=== PATIENT | female | born 1925 | race Caucasian/White ===

== ENCOUNTER 2017-02-17 11:52 | Inpatient (IN) ==
[2017-02-17] MEDS ORDERED: TYLENOL PO PRN ×2 (14:09→14:57)
[2017-02-17] MEDS ORDERED: ZOFRAN ODT PO PRN (14:57)
[2017-02-17] MEDS ORDERED: MIRALAX PO PRN (14:57)
[2017-02-17] MEDS ORDERED: TEARISOL OPH SOLUTION BOTH EYES PRN (14:57)
[2017-02-17] MEDS ORDERED: TUMS PO PRN (14:57)
[2017-02-17] MEDS ORDERED: DULCOLAX PR PRN (14:57)
--- NOTE | 2017-02-17 15:09 | Diag Imaging Result Document ---
PROCEDURE NAME: CHEST-2 VIEWS - 02/17/2017 TWO VIEWS OF THE CHEST: FINDINGS: There is fibrosis with volume loss and elevation of the wilbert bilaterally and marked apical pleural thickening. There may be cystic bronchiectasis in both upper lobe, consistent with chronic granulomatous disease. The appearance of the lungs has not changed significantly since 12/17/2016. There has been significant improvement since 02/12/2014. IMPRESSION: Chronic granulomatous changes with fibrosis and bronchiectasis in the upper lung zones.
[2017-02-17 15:15] LABS: BASO% 0.2 % (0.0-0.8); HEMATOCRIT 39.7 % (37.0-47.0); HEMOGLOBIN 12.8 g/dL (12.0-16.0); IMM GRAN# 0.15 X1000 (0.0-0.04); IMM GRAN% 0.5 % (0.0-0.5); LYMPH# 0.84 X1000 (1.2-3.4); LYMPH% 2.8 % (20.5-51.1); MANUAL DIFF NEEDED? YES; MCH 30.2 PG (27-31); MCHC 32.2 g/dL (33-37); MCV 93.6 FL (81-99); MONO# 3.11 X1000 (0.11-0.59); MONO% 10.3 % (1.7-9.3); MPV 9.7 FL (7.4-10.4); NEUT% 86.2 % (42.2-75.2); PLT 265 X1000 (130-400); RBC 4.24 XMIL (4.2-5.4)
[2017-02-17 15:21] LABS: ALBUMIN 3.8 g/dL (3.5-5.0); CALCIUM 9.6 mg/dL (8.8-10.2); POTASSIUM 3.4 mmol/L (3.5-5.1); TOTAL BILIRUBIN 0.9 mg/dL (0.20-1.00); TOTAL PROTEIN 7.3 g/dL (6.3-8.3)
[2017-02-17] MEDS: CARAFATE PO SCH ×2 (16:37→22:19)
[2017-02-17] MEDS: ALBUTEROL NEB INH SCH (16:41)
--- NOTE | 2017-02-17 16:45 | HISTORY AND PHYSICAL ---
PRIMARY CARE PHYSICIAN: Fransisca Simpson M.D. CHIEF COMPLAINT: Shortness of breath, subjective fever, cough, and had 2 falls last night. HISTORY OF PRESENTING ILLNESS: This is an 89-year-old, female who presents as a direct admit from her primary care physician's office after having a fall x2 last night according to her family member. The patient has had a history of bronchiectasis and now complains of subjective fever, chills, body aches, shortness of breath, productive cough of yellow sputum. Due to her lung history it was felt that she most likely had an underlying pneumonia or could be a flare-up of her bronchiectasis so she is being admitted as a direct admit from her primary care physician's office. PAST MEDICAL HISTORY: Breast cancer, pulmonary fibrosis, CVA x2, hypertension, hypothyroidism, hyperlipidemia, seizures, bronchiectasis. PAST SURGICAL HISTORY: Mastectomy, bilateral cataract surgery, cholecystectomy and bilateral hip replacement. FAMILY HISTORY: Noncontributory. SOCIAL HISTORY: Denies any tobacco, alcohol, or illicit drug use. ALLERGIES: Iodinated contrast media oral and morphine. HOME MEDICATIONS: A current list is being obtained and we will restart those as appropriate. LABORATORY DATA: We obtained a CBC, CMP, 2-view chest x-ray, blood cultures x2 all of which are pending at this time. REVIEW OF SYSTEMS: She was positive for subjective fever, chills, body aches, productive cough of yellow sputum, shortness of breath and fall x2 last night. She denied any chest pain, abdominal pain, constipation, diarrhea, burning or hurting with urination. PHYSICAL EXAMINATION: VITAL SIGNS: Temperature of 97.2 degrees, pulse 83, respirations 16, blood pressure 112/56, saturating 92% on room air. GENERAL: This is an 89-year-old, female who is lying in bed and answers questions appropriately. HEENT: Normocephalic and atraumatic. Pupils are equal, round, reactive to light. Extraocular movements are intact. Oropharynx and nares are clear. NECK: Supple. LUNGS: Scattered wheezes throughout entire posterior lung field, equal lung expansion and chest wall movement noted. HEART: Regular rate and rhythm. No murmurs, rubs, or gallops. ABDOMEN: Soft, nontender, nondistended. Bowel sounds are present x4 quadrants. EXTREMITIES: There is no clubbing, cyanosis, or edema. NEUROLOGICAL: Cranial nerves 2-12 are grossly intact. ASSESSMENT: 1. Fall. 2. Pneumonia versus bronchiectasis. 3. Hypothyroidism. 4. Hypertension, history of. PLAN: 1. She has been admitted to the medical unit at [facility], placed on telemetry, O2 per protocol, incentive spirometry, vital signs q.4 hours, healthy heart diet. 2. We will get a physical therapy consultation. 3. Blood cultures x2, CBC with CMP and a 2 view chest x-ray. After those are obtained we will start her on Levaquin 750 mg IV q.24 hours. 4. We will obtain a current list of her home medications and restart those as appropriate. Dictated by MICHELINE Bhatia for Chuck Lima MD pt examined, agree with above, has a high wbc, may need chest CT, AP[facility]OT MTDD
[2017-02-17] MEDS ORDERED: ATROVENT 0.06% NASAL SPRAY NAS SCH (17:00)
[2017-02-17 17:03] LABS: BANDS 38 % (0-1); LYMPHS 8 % (21-51); MONO 4 % (1-9)
[2017-02-17] MEDS ORDERED: DUONEB (A & A) INH PRN (17:03)
[2017-02-17] MEDS: PATIENT'S OWN MED PO SCH ×2 (17:22→22:21)
[2017-02-17] MEDS: LOVENOX SUBQ SCH (17:23)
[2017-02-17] MEDS: LEVAQUIN 750 MG/D5W 150 ML IV SCH (17:23)
[2017-02-17] MEDS: KEPPRA PO SCH (22:18)
[2017-02-17] MEDS: COLACE PO SCH (22:18)
[2017-02-17] MEDS: PEPCID PO SCH (22:19)
[2017-02-17] MEDS: ANUSOL-HC SUPP PR SCH (22:19)
[2017-02-17] MEDS: LOPRESSOR PO SCH (22:19)
[2017-02-17] MEDS: CITRACAL + D PO SCH (22:19)
[2017-02-17] MEDS: MUCINEX PO SCH (22:19)
[2017-02-17] MEDS: CRESTOR PO SCH (22:19)
[2017-02-17] MEDS: XALATAN 0.005% OPH SOLN BOTH EYES SCH (22:20)
[2017-02-17] MEDS: TESSALON PO SCH (22:20)
[2017-02-17] MEDS: SYSTANE EYE DROPS BOTH EYES SCH (22:21)
[2017-02-18] MEDS: PROTONIX PO SCH (06:17)
[2017-02-18] MEDS: CARAFATE PO SCH ×6 (06:17→21:08)
[2017-02-18] MEDS: SYNTHROID PO SCH ×2 (06:17)
[2017-02-18 06:24] LABS: BASO% 0.2 % (0.0-0.8); HEMATOCRIT 35.1 % (37.0-47.0); HEMOGLOBIN 11.5 g/dL (12.0-16.0); IMM GRAN# 0.09 X1000 (0.0-0.04); IMM GRAN% 0.4 % (0.0-0.5); LYMPH# 1.37 X1000 (1.2-3.4); LYMPH% 5.9 % (20.5-51.1); MANUAL DIFF NEEDED? YES; MCH 30.5 PG (27-31); MCHC 32.8 g/dL (33-37); MCV 93.1 FL (81-99); MONO# 2.77 X1000 (0.11-0.59); MONO% 11.8 % (1.7-9.3); MPV 10.2 FL (7.4-10.4); NEUT% 81.7 % (42.2-75.2); PLT 238 X1000 (130-400); RBC 3.77 XMIL (4.2-5.4)
[2017-02-18 06:39] LABS: AGAP 11; ALBUMIN 3.2 g/dL (3.5-5.0); ALKALINE PHOSPHATASE 144 U/L (32-104); BUN 19 mg/dL (8-22); CALCIUM 9.3 mg/dL (8.8-10.2); CHLORIDE 93 mmol/L (98-107); COSMO 265; DIGOXIN 0.8 ng/mL (0.9-2.0); GOT 20 U/L (10-30); GPT 19 U/L (10-36); POTASSIUM 3.5 mmol/L (3.5-5.1); SODIUM 131 mmol/L (136-145); TCO2 28 mmol/L (25-35); TOTAL PROTEIN 6.6 g/dL (6.3-8.3)
[2017-02-18 06:59] LABS: BANDS 2 % (0-1); BASO 1 % (0-1); LYMPHS 7 % (21-51); MONO 5 % (1-9)
[2017-02-18] MEDS: ALBUTEROL NEB INH SCH (07:48)
[2017-02-18] MEDS: KEPPRA PO SCH ×3 (08:17→21:08)
[2017-02-18] MEDS: CITRACAL + D PO SCH ×3 (08:18→21:08)
[2017-02-18] MEDS: ANUSOL-HC SUPP PR SCH ×2 (08:30→21:06)
[2017-02-18] MEDS: ASPIRIN PO SCH (08:31)
[2017-02-18] MEDS: LOPRESSOR PO SCH ×3 (08:31→21:07)
[2017-02-18] MEDS: MUCINEX PO SCH ×3 (08:31→21:07)
[2017-02-18] MEDS: PRINIVIL PO SCH (08:32)
[2017-02-18] MEDS: PEPCID PO SCH ×3 (08:32→21:07)
[2017-02-18] MEDS: ASTELIN NASAL SPRAY NAS SCH (08:32)
[2017-02-18] MEDS: SYSTANE EYE DROPS BOTH EYES SCH ×3 (09:00→21:07)
[2017-02-18] MEDS ORDERED: LANOXIN PO SCH (09:00)
[2017-02-18] MEDS: CLARITIN PO SCH (09:00)
[2017-02-18] MEDS: PATIENT'S OWN MED PO SCH ×5 (09:00→19:59)
[2017-02-18] MEDS: CARDIZEM CD PO SCH (09:00)
[2017-02-18] MEDS: COLACE PO SCH ×3 (09:00→21:08)
[2017-02-18] MEDS ORDERED: XOPENEX NEB INH PRN (12:25)
--- NOTE | 2017-02-18 14:12 | PROGRESS NOTE ---
DATE: 02/18/2017 SUBJECTIVE: Patient has no focal complaints. She does not feel as good as she was hoping she would feel like. OBJECTIVE: Blood pressure 117/48, heart rate 96, respiratory rate 18, temperature 98.2 degrees, 100% on 3 L.Cardiovascular: Regular rate and rhythm. Pulmonary: Bilateral breath sounds. Clear to auscultation. GI: Soft, nontender, nondistended. Bowel sounds are positive. Extremities: No clubbing or cyanosis. Lymphatics: No peripheral edema. She still has fine crackles in the upper airways. PROBLEM LIST: 1. Pulmonary fibrosis with exacerbation. Continue breathing treatments. I am going to add some low-dose steroids and follow clinically. 2. Bronchiectasis likely recurrent exacerbation. She is on Levaquin. She has a very high a white count which has improved with treatment. I am going to go and progress to CT just because x-ray is not that revealing. We will continue breathing treatments and follow clinically. Sputum culture is pending. 3. Hypertension. Continue her regular medications. DISPOSITION: Pending her rest of her workup. Will continue to monitor very closely.
[2017-02-18] MEDS ORDERED: XOPENEX NEB INH SCH (15:30)
[2017-02-18] MEDS: XOPENEX NEB INH SCH ×3 (16:15→22:59)
[2017-02-18] MEDS: SOLU-MEDROL IV SCH (16:42)
[2017-02-18] MEDS: LEVAQUIN 750 MG/D5W 150 ML IV SCH (16:43)
[2017-02-18] MEDS: LOVENOX SUBQ SCH (16:43)
[2017-02-18 17:00] LABS: URINE SOURCE VOIDED
[2017-02-18 17:13] LABS: BILIRUBIN URINE NEGATIVE (NEGATIVE); BLOOD URINE NEGATIVE (NEGATIVE); CLARITY CLEAR (CLEAR); COLOR YELLOW; GLUCOSE URINE NEGATIVE (NEGATIVE); LEUKOCYTES URINE TRACE (NEGATIVE); NITRITE URINE NEGATIVE (NEGATIVE); PROTEIN URINE 1+(30 mg/dL) mg/dL (NEGATIVE); SP GRAVITY URINE 1.015; UROBILINOGEN URINE NORMAL
[2017-02-18 17:19] LABS: URINE CULTURE PL NEEDED? YES; URINE EPITHELIAL CELLS <10 /HPF (<10); URINE WBC <10 /HPF (<10)
[2017-02-18] MEDS: TESSALON PO SCH ×2 (19:56→21:07)
[2017-02-18] MEDS: XALATAN 0.005% OPH SOLN BOTH EYES SCH ×2 (19:58→21:07)
[2017-02-18] MEDS: CRESTOR PO SCH ×2 (19:58→21:08)
[2017-02-19] MEDS: SOLU-MEDROL IV SCH ×2 (01:10→15:16)
[2017-02-19] MEDS: XOPENEX NEB INH SCH ×4 (03:40→15:30)
[2017-02-19] MEDS: PROTONIX PO SCH (06:03)
[2017-02-19] MEDS: SYNTHROID PO SCH ×2 (06:03)
[2017-02-19 06:27] LABS: HEMATOCRIT 33.7 % (37.0-47.0); HEMOGLOBIN 10.9 g/dL (12.0-16.0); MCH 29.9 PG (27-31); MCHC 32.3 g/dL (33-37); MCV 92.3 FL (81-99); MPV 10.5 FL (7.4-10.4); RBC 3.65 XMIL (4.2-5.4)
[2017-02-19 07:01] LABS: AGAP 14; BUN 21 mg/dL (8-22); CALCIUM 9.1 mg/dL (8.8-10.2); CHLORIDE 91 mmol/L (98-107); COSMO 266; POTASSIUM 3.4 mmol/L (3.5-5.1); SODIUM 129 mmol/L (136-145); TCO2 25 mmol/L (25-35)
[2017-02-19] MEDS: KEPPRA PO SCH ×2 (08:43→20:58)
[2017-02-19] MEDS: CLARITIN PO SCH (08:43)
[2017-02-19] MEDS: CARAFATE PO SCH ×4 (08:43→20:58)
[2017-02-19] MEDS: PEPCID PO SCH ×2 (08:44→20:59)
[2017-02-19] MEDS: PRINIVIL PO SCH (08:44)
[2017-02-19] MEDS: LOPRESSOR PO SCH ×2 (08:44→20:59)
[2017-02-19] MEDS: MUCINEX PO SCH ×2 (08:44→20:58)
[2017-02-19] MEDS: ASPIRIN PO SCH (08:44)
[2017-02-19] MEDS: LANOXIN PO SCH (08:44)
[2017-02-19] MEDS: CARDIZEM CD PO SCH (08:44)
[2017-02-19] MEDS: COLACE PO SCH ×2 (08:45→20:59)
[2017-02-19] MEDS: CITRACAL + D PO SCH ×2 (08:45→20:58)
[2017-02-19] MEDS: ANUSOL-HC SUPP PR SCH ×2 (08:45→21:00)
[2017-02-19] MEDS: ASTELIN NASAL SPRAY NAS SCH (08:45)
[2017-02-19] MEDS: PATIENT'S OWN MED PO SCH ×5 (08:46→20:59)
[2017-02-19] MEDS: SYSTANE EYE DROPS BOTH EYES SCH ×2 (08:47→20:59)
--- NOTE | 2017-02-19 10:32 | Diag Imaging Result Document ---
PROCEDURE NAME: CT THORAX W/O CONTRAST - 02/19/2017 CT THORAX WITHOUT CONTRAST: According to the technologist, no intravenous contrast was administered due to history of contrast allergy. COMPARISON: No comparison CT thorax is available. FINDINGS: There are bilateral upper lobe opacities with volume loss and many air-containing cystic cavities. Appearance suggests longstanding change such as from old ( remote) tuberculosis. There is mild pleural thickening along the posterior mid inferior right thorax, and there are a few pleural calcifications. There is no acute appearing consolidation identified. There is no substantial pleural effusion identified. There is no pneumothorax identified. There is no pulmonary mass lesion identified. There are some mildly prominent mediastinal lymph nodes. IMPRESSION: 1. Bilateral upper lobe opacities with volume loss and many air-containing cystic cavities. Appearance suggests chronic changes, such as from remote tuberculosis infection. 2. No indication of acute pneumonia. 3. Mild mediastinal adenopathy. [facility]
[2017-02-19] MEDS: LEVAQUIN 750 MG/D5W 150 ML IV SCH (15:17)
[2017-02-19] MEDS ORDERED: DUONEB (A & A) INH PRN (16:48)
[2017-02-19] MEDS: LOVENOX SUBQ SCH (19:14)
[2017-02-19] MEDS: MAXIPIME 1 GM/NS 50 ML IV SCH (19:14)
[2017-02-19] MEDS: CRESTOR PO SCH (20:58)
[2017-02-19] MEDS: TESSALON PO SCH (20:58)
[2017-02-19] MEDS: XALATAN 0.005% OPH SOLN BOTH EYES SCH (20:59)
[2017-02-19] MEDS: MUCOMYST 20% INH SCH (21:11)
[2017-02-19] MEDS: DUONEB (A & A) INH SCH (21:11)
[2017-02-20] MEDS: SOLU-MEDROL IV SCH ×2 (01:07→13:58)
[2017-02-20] MEDS: MAXIPIME 1 GM/NS 50 ML IV SCH ×2 (03:05→16:47)
[2017-02-20] MEDS: DUONEB (A & A) INH SCH ×3 (03:37→15:35)
[2017-02-20] MEDS: PROTONIX PO SCH (06:06)
[2017-02-20] MEDS: SYNTHROID PO SCH ×2 (06:06)
[2017-02-20 06:59] LABS: HEMATOCRIT 34.5 % (37.0-47.0); HEMOGLOBIN 11.3 g/dL (12.0-16.0); MCH 29.8 PG (27-31); MCHC 32.8 g/dL (33-37); MPV 10.2 FL (7.4-10.4); RBC 3.79 XMIL (4.2-5.4)
[2017-02-20 07:21] LABS: AGAP 10; BUN 23 mg/dL (8-22); CALCIUM 9.5 mg/dL (8.8-10.2); CHLORIDE 96 mmol/L (98-107); COSMO 275; POTASSIUM 3.6 mmol/L (3.5-5.1); SODIUM 133 mmol/L (136-145); TCO2 27 mmol/L (25-35)
[2017-02-20] MEDS: LANOXIN PO SCH (08:02)
[2017-02-20] MEDS: CARAFATE PO SCH ×3 (08:02→17:23)
[2017-02-20] MEDS: KEPPRA PO SCH (08:02)
[2017-02-20] MEDS: PEPCID PO SCH (08:03)
[2017-02-20] MEDS: CARDIZEM CD PO SCH (08:03)
[2017-02-20] MEDS: LOPRESSOR PO SCH (08:03)
[2017-02-20] MEDS: ANUSOL-HC SUPP PR SCH ×2 (08:03→10:05)
[2017-02-20] MEDS: COLACE PO SCH (08:03)
[2017-02-20] MEDS: MUCINEX PO SCH (08:03)
[2017-02-20] MEDS: PRINIVIL PO SCH (08:03)
[2017-02-20] MEDS: CLARITIN PO SCH (08:03)
[2017-02-20] MEDS: CITRACAL + D PO SCH (08:03)
[2017-02-20] MEDS: ASTELIN NASAL SPRAY NAS SCH (08:04)
[2017-02-20] MEDS: PATIENT'S OWN MED PO SCH ×4 (08:19→17:25)
[2017-02-20] MEDS: SYSTANE EYE DROPS BOTH EYES SCH (08:19)
[2017-02-20] MEDS: ASPIRIN PO SCH (10:05)
[2017-02-20] MEDS: MUCOMYST 20% INH SCH (10:44)
[2017-02-20 15:32] VITALS: BP 135/53
[2017-02-20] MEDS: LOVENOX SUBQ SCH (17:23)
--- NOTE | 2017-02-20 21:10 | DISCHARGE SUMMARY ---
ADMISSION DATE: 02/17/2017 DISCHARGE DATE: 02/20/2017 DIAGNOSES: 1. Pneumonia versus bronchiectasis. 2. Hypothyroidism. 3. Hypertension. 4. Pulmonary fibrosis with exacerbation. HOSPITAL COURSE: Ms. Nielsen presented to the emergency room with shortness of breath, fever, and cough. She had 2 falls the night before coming to the emergency room. She stated that she coughed so much she was just exhausted. She was found to have what was felt to be a flare-up of her bronchiectasis or pulmonary fibrosis versus pneumonia. Blood cultures were obtained which were negative. Sputum culture was negative. Urine culture was negative. Antibiotic coverage with Levaquin was begun and she was transitioned over to Merrem with DuoNebs and Xopenex as per her home regimen. We did continue her home medications. Oxygen saturations stayed 95-100% on 2 L nasal cannula. We add steroids and she seemed to improve clinically. CT scan was performed which revealed bilateral upper lobe opacities with volume loss and many air containing cystic cavities. No indication of pneumonia. Mild mediastinal adenopathy. Dr. Lima spoke with Dr. Balbuena, vp treasurer, who felt that the CT scan was stable. Physical Therapy evaluated due to patient's deconditioning. The patient does have difficulty maintaining balance. Evidently she was diagnosed with a neurologic deficit that the family member cannot specify but Dr. Peirce sees her in followup and she had been placed on Keppra. Shortly after the diagnosis, she required a walker to maintain her balance and this has been stable for quite some time. DISCHARGE PHYSICAL EXAMINATION: Cardiovascular: Regular rate and rhythm. S1 and S2 appreciated. Pulmonary: Breath sounds are clear with no increased work of breathing noted. Gastrointestinal: Abdomen is soft, nontender, nondistended, with bowel sounds in all 4 quadrants. Extremities: No clubbing, cyanosis, or edema. Pulses are palpable x4. Calves are nontender. Neurologic: She is alert and oriented. DISCHARGE VITAL SIGNS: Blood pressure is 115/43 with a heart rate of 67, respirations are 18, temperature is 98 degrees oral with oxygen saturations of 96-99% on nasal cannula. DISCHARGE ACTIVITY: As tolerated and as per Physical Therapy's recommendations. DISCHARGE FOLLOWUP: 1. Primary care physician in 2-3 weeks. 2. [facility] and PT to evaluate and treat as appropriate. DISCHARGE MEDICATIONS: 1. Systane eye drops b.i.d. p.r.n. 2. Zofran 4 mg q.8 hours p.r.n. 3. Zaditor ophthalmic solution 2 drops to both eyes b.i.d. 4. Xalatan 0.005% 1 drop both eyes at night. 5. Kenalog cream as directed. 6. Protonix 40 mg daily. 7. Oxybutynin ER 10 mg at bedtime. 8. MiraLAX 17 g daily. 9. Toprol-XL 50 mg daily. 10. Synthroid 125 mcg daily. 11. Xopenex 1.25 q.6 hours. 12. Fleet's enema p.r.n. 13. Pepcid AC 20 mg at bedtime. 14. Digoxin 125 mcg daily. 15. Omnicef 600 mg p.o. daily for 1 week. 16. Astelin nose spray, 2 sprays to each nostril daily. 17. Albuterol nebs as directed. 18. Tessalon Perles 1 at 100 mg at bedtime. 19. Claritin 10 mg daily. 20. Prinivil 10 daily, 21. Keppra 750 b.i.d. 22. Cardizem ER 360 daily. 23. Carafate 1 g 4 times a day. 24. Medrol Dosepak as directed. 25. Zithromax 250 mg Z-Christiano. She is being discharged home to [place] with home health in stable condition with family members present. DISCHARGE TIME: Greater than 30 minute discharge. Dictated by MICHELINE Cates for Jamari Mahajan MD cc: MICHELINE Cates MD Alexis R. Penot, MD Emily M. McClure, MD
== END 2017-02-20 17:52 | disposition home or self-care (01) ==
LOC: P.DIRADM 11:52 → P.MEDSURG 12:51
PROVIDERS: ADMIT Internal Medicine; ATTEND Internal Medicine